=== PATIENT | female | born 1995 | race African-American/Black ===

== ENCOUNTER 2024-10-11 12:32 | Outpatient (CLI) | payer OTHER ==
[2024-10-11 15:00] VITALS: BP 116/78; PULSE 89; RESP 16; TEMP 97.1
--- NOTE | 2024-11-14 09:53 | P.MSEPDOC ---
Presenting Problems - Arrival Data Date of Arrival on Unit: 10/11/24 Time of Arrival on Unit: 12:32 Mode of Transport: EMS - Complaint OB-Reason for Admission/Chief Complaint: Vaginal Bleeding, Pain Comment: DOM pt presents via EMS with c/o vaginal bleeding in the shower, abdominal pain/cramping that has been happening on and off for the last couple weeks. Pt states that she had a small amount of bright red bleeding while in the shower and had a small streak of bleeding on toilet paper, but none since. Medical History - Information : 4 Para: 2 Term: 2 : 0 Abortions: Spontaneous or Elective: 1 Number of Living Children: 2 - Gestational Age Gestational Age by JAVIER (wks/days): 31 Weeks and 0 Days - History Complications: Hx. Substance Abuse Comment: Alcohol use during , last drink was 08/25/24. Graduated from [facility] on 10/08/24. Review of Systems - Review of Systems Constitutional: No problems Breast: No problems ENT: No problems Cardiovascular: No problems Respiratory: No problems Gastrointestinal: No problems Genitourinary: No problems Musculoskeletal: No problems Neurological: No problems Skin: No problems Vital Signs - Temperature Temperature: 97.1 F Temperature Source: Temporal Artery Scan - Pulse Pulse Oximetery Pulse Rate: 89 Pulse Assessment Method: Pulse Oximetry - Respirations Respiratory Rate: 16 Oxygen Delivery Method: Room Air O2 Sat by Pulse Oximetry: 97 - Blood Pressure Right Arm Blood Pressure: 116/78 Blood Pressure Mean: 90 Blood Pressure Source: Automatic Cuff Medical Screen Scoring - Assessment - Baby A Baseline FHR: 145 Heart Rate - NICHD Category: Category I (Normal) NST: Reactive Physician Notification - Physician Notified Physician Notified Date: 10/11/24 Physician Notified Time: 12:48 Physician: Sabra Borja New Order Received: Yes - Notification Comment Comment: At 1248, Reported DOM pt presents with c/o bright red vaginal bleeding while in shower and wiping on toilet paper, abd pain/cramping on and off for weeks, has not had a bowel movement in days and when she tries, has hard naldo/starts sweating. Reported vitals WNL, suhas 1 FHT, no contx, abd soft to palpation, no blood noted during external vaginal exam. Reported pt is seen for PNC at [facility] [place] and drank at the beginning of her but has not had a drink since 08/25 and was a pt at [facility] but graduated. Order received for pad counts, oral hydration and to observe pt for one hour. At 1348, Order received from Dr. Borja to check pt's ilana pad. If no blood, pt can be discharged with education to increase oral hydration. Maternal Triage Index - Maternal Triage Index Presenting for scheduled procedure w/no complaint: No - Stat/Priority 1 Stat Priority 1: No - Urgent/Priority 2 Urgent Priority 2: No - Prompt/Priority 3 Prompt Priority 3: No - Non-Urgent/Priority 4 Non-Urgent Priority 4: Yes Criteria Met for Priority 4: Non-urgent symptoms of Disposition - Disposition OB Disposition: Discharge to home, Written follow up instructions reviewed Discharge Date: 10/11/24 Discharge Time: 14:00 I agree with the RN Medical Screening Exam: Yes Case reviewed; plan agreed upon as documented in EMR&OBIX.: Yes Diagnosis: FALSE LABOR BEFORE 37 COMPLETED WEEKS OF GEST, THIRD TRI
== END 2024-10-11 14:00 | disposition home or self-care (01) ==
LOC: FBPOP 12:32
PROVIDERS: ATTEND Obstetrics & Gynecology Obstetrics
DX: O47.03 False labor before 37 completed weeks of gestation, third trimester (principal); Z3A.31 31 weeks gestation of pregnancy
CPT/HCPCS: 59025; 99215